=== PATIENT | male | born 1955 | race Caucasian/White ===

== ENCOUNTER 2022-08-28 14:37 | Observation (INO) | payer MEDICARE ==
[2022-08-28 15:08] LABS: CHLORIDE,CL 104 mEq/L (98-106); ESTIMATED GFR 59 mL/min (>=60); SODIUM,NA 140 mEq/L (136-145)
[2022-08-28] MEDS ORDERED: Acetaminophen 325 MG Tab PO PRN (16:07)
[2022-08-28] MEDS ORDERED: Ondansetron 4 MG Tab.DIS PO PRN (16:07)
[2022-08-28] MEDS: Iopamidol 755 Mg/ML 100 ML Bottle IVPUSH ONE (16:34)
[2022-08-28] MEDS: Ketorolac 30 MG/ML SDV IVPUSH ONE (17:12)
[2022-08-28] MEDS: metFORMIN 500 MG Tab PO SCH (17:50)
[2022-08-28] MEDS: Ondansetron 4 MG/2 ML SDV IVPUSH STA (18:24)
[2022-08-28] MEDS: Morphine 2 MG/ML SYRINGE IVPUSH ONE (18:25)
[2022-08-29] MEDS ORDERED: Losartan 100 MG Tab PO SCH (08:00)
[2022-08-29] MEDS ORDERED: atorvaSTATin 10 MG Tab PO SCH (08:00)
[2022-08-29] MEDS ORDERED: Cholecalciferol (Vitamin D3) 25 MCG Tab PO SCH (08:00)
== END 2022-08-28 18:35 ==
LOC: CC.MS 14:37 → CC.FCMC 14:37 → UNDOADMOB 15:49 → CC.MS 15:49
PROVIDERS: ADMIT Nurse Practitioner; ATTEND Nurse Practitioner
DX: R07.9 Chest pain, unspecified (principal); J90 Pleural effusion, not elsewhere classified; Z79.84 Long term (current) use of oral hypoglycemic drugs; Z79.82 Long term (current) use of aspirin; Z79.899 Other long term (current) drug therapy; Z20.822 Contact with and (suspected) exposure to COVID-19
CPT/HCPCS: 36415; 71046; 71270; 80053; 82550; 84484; 85025; 85379; 86140; 93005; 96374; 96375; G0378; J1885; J2270; J2405; Q9967; U0002

== ENCOUNTER 2023-12-30 12:44 | Observation (INO) | payer MEDICARE ==
[2023-12-30] MEDS ORDERED: Sodium Chloride 0.9% 10 ML Syringe FLUSH PRN (13:35)
[2023-12-30 13:44] LABS: BASOPHILS ABSOLUTE AUTO 0.02 10^3/uL (0.00-0.50); BASOPHILS PERCENT AUTO 0.6 % (0-1); EOSINOPHILS ABSOLUTE AUTO 0.03 10^3/uL (0.00-1.50); EOSINOPHILS PERCENT AUTO 0.9 % (0-6); HEMATOCRIT 36.8 % (42.0-52.0); HEMOGLOBIN 12.1 g/dL (14.0-18.0); LYMPHOCYTES PERCENT AUTO 36.8 % (24-44); MEAN CORPUSCULAR HEMOGLOBIN 30.9 pg (27.0-32.0); MEAN CORPUSCULAR HGB CONC 32.9 g/dL (32.0-36.0); MEAN CORPUSCULAR VOLUME 93.9 fL (83.0-97.0); MONOCYTES ABSOLUTE AUTO 0.29 10^3/uL (0.00-1.50); MONOCYTES PERCENT AUTO 8.9 % (0-10); NEUTROPHILS ABSOLUTE AUTO 1.72 x10^3/uL (1.80-8.00); NEUTROPHILS PERCENT AUTO 52.8 % (41-71); PLATELET COUNT,PLT 275 10^3/uL (150-400); RED BLOOD CELL COUNT 3.92 x10^6/uL (4.50-6.00); WHITE BLOOD CELL COUNT,WBC 3.3 10^3/uL (4.0-11.0)
[2023-12-30] MEDS: Sodium Chloride 0.9% 1,000 ML IV ONE (14:04)
[2023-12-30 14:11] LABS: APPEARANCE,URINE CLEAR (CLEAR); BILIRUBIN,URINE NEGATIVE (NEGATIVE); COLOR,URINE YELLOW (YELLOW); GLUCOSE,URINE NEGATIVE (NEGATIVE); KETONES,URINE NEGATIVE (NEGATIVE); LEUKOCYTE ESTERASE,URINE NEGATIVE (NEGATIVE); NITRITE,URINE NEGATIVE (NEGATIVE); OCCULT BLOOD,URINE NEGATIVE (NEGATIVE); PROTEIN,URINE NEGATIVE (NEGATIVE); UROBILINOGEN,URINE 0.2 EU/dL (0.2-1.0)
[2023-12-30 14:20] LABS: CORONAVIRUS COVID-19 NAA NEGATIVE (NEGATIVE); INFLUENZA A NAA NEGATIVE (NEGATIVE); INFLUENZA B NAA NEGATIVE (NEGATIVE); RESPIRATORY SYNCYTIAL VIR NAA NEGATIVE (NEGATIVE)
[2023-12-30 16:00] LABS: BILIRUBIN TOTAL 0.2 mg/dL (0.0-1.0); C-REACTIVE PROTEIN 2.83 mg/dL (<=0.50); CALCIUM 9.7 mg/dL (8.4-10.1); CREATININE 1.5 mg/dL (0.7-1.3); EST CRCL DRUG DOSING (CG) 48.51 mL/min; POTASSIUM,K 5.9 mEq/L (3.5-5.0); PROTEIN TOTAL,TP 7.4 g/dL (6.4-8.2)
[2023-12-30] MEDS: Ondansetron 4 MG/2 ML SDV IVPUSH STA (16:34)
[2023-12-30] MEDS ORDERED: Acetaminophen 325 MG Tab PO PRN (17:09)
[2023-12-30] MEDS ORDERED: Ondansetron 4 MG Tab.DIS PO PRN (17:09)
[2023-12-30] MEDS: Sodium Chloride 0.9% 1,000 ML IV SCH (17:44)
[2023-12-30] MEDS: Furosemide 20 MG/2 ML VIAL IVPUSH ONE (17:44)
[2023-12-30] MEDS: Mirtazapine 15 MG Tab PO SCH (20:06)
[2023-12-30] MEDS: metFORMIN 500 MG Tab PO SCH (20:07)
[2023-12-31 07:25] LABS: BASOPHILS ABSOLUTE AUTO 0.01 10^3/uL (0.00-0.50); BASOPHILS PERCENT AUTO 0.3 % (0-1); EOSINOPHILS ABSOLUTE AUTO 0.04 10^3/uL (0.00-1.50); EOSINOPHILS PERCENT AUTO 1.3 % (0-6); HEMATOCRIT 36.4 % (42.0-52.0); IMMATURE GRAN ABSOLUTE AUTO 0.01 10^3/uL (0.00-0.49); IMMATURE GRAN PERCENT AUTO 0.3 % (0.0-4.9); LYMPHOCYTES ABSOLUTE AUTO 1.59 10^3/uL (0.60-5.00); LYMPHOCYTES PERCENT AUTO 49.8 % (24-44); MEAN CORPUSCULAR HEMOGLOBIN 31.2 pg (27.0-32.0); MEAN CORPUSCULAR VOLUME 94.5 fL (83.0-97.0); MONOCYTES PERCENT AUTO 15.7 % (0-10); NEUTROPHILS ABSOLUTE AUTO 1.04 x10^3/uL (1.80-8.00); NEUTROPHILS PERCENT AUTO 32.6 % (41-71); PLATELET COUNT,PLT 252 10^3/uL (150-400); RED BLOOD CELL COUNT 3.85 x10^6/uL (4.50-6.00); WHITE BLOOD CELL COUNT,WBC 3.2 10^3/uL (4.0-11.0)
[2023-12-31] MEDS ORDERED: Dexamethasone 4 MG Tab PO SCH (08:00)
[2023-12-31] MEDS: Apixaban 5 MG Tab PO SCH ×2 (08:20→21:06)
[2023-12-31] MEDS: Cholecalciferol (Vitamin D3) 25 MCG Tab PO SCH (08:20)
[2023-12-31] MEDS: amLODIPine 10 MG Tab PO SCH (08:21)
[2023-12-31] MEDS: Aspirin 81 MG Tab.EC PO SCH (08:21)
[2023-12-31] MEDS: atorvaSTATin 10 MG Tab PO SCH (08:22)
[2023-12-31 10:34] LABS: BILIRUBIN TOTAL 0.2 mg/dL (0.0-1.0); CALCIUM 9.6 mg/dL (8.4-10.1); CREATININE 1.3 mg/dL (0.7-1.3); EST CRCL DRUG DOSING (CG) 52.65 mL/min; POTASSIUM,K 5.8 mEq/L (3.5-5.0); PROTEIN TOTAL,TP 7.2 g/dL (6.4-8.2)
[2023-12-31] MEDS: Furosemide 20 MG/2 ML VIAL IVPUSH ONE (12:49)
[2023-12-31 16:52] LABS: ALBUMIN 3.2 g/dL (3.4-5.0)
[2023-12-31] MEDS: Prochlorperazine 10 MG Tab PO PRN (17:12)
[2023-12-31] MEDS: metFORMIN 500 MG Tab PO SCH (17:12)
[2024-01-01] MEDS: amLODIPine 2.5 MG Tab PO SCH (07:38)
[2024-01-01 07:46] LABS: BASOPHILS ABSOLUTE AUTO 0.02 10^3/uL (0.00-0.50); BASOPHILS PERCENT AUTO 0.4 % (0-1); EOSINOPHILS ABSOLUTE AUTO 0.05 10^3/uL (0.00-1.50); EOSINOPHILS PERCENT AUTO 0.9 % (0-6); HEMATOCRIT 35.4 % (42.0-52.0); HEMOGLOBIN 11.8 g/dL (14.0-18.0); IMMATURE GRAN ABSOLUTE AUTO 0.02 10^3/uL (0.00-0.49); IMMATURE GRAN PERCENT AUTO 0.4 % (0.0-4.9); LYMPHOCYTES ABSOLUTE AUTO 1.93 10^3/uL (0.60-5.00); LYMPHOCYTES PERCENT AUTO 35.2 % (24-44); MEAN CORPUSCULAR HEMOGLOBIN 31.5 pg (27.0-32.0); MEAN CORPUSCULAR HGB CONC 33.3 g/dL (32.0-36.0); MEAN CORPUSCULAR VOLUME 94.4 fL (83.0-97.0); MONOCYTES ABSOLUTE AUTO 0.79 10^3/uL (0.00-1.50); MONOCYTES PERCENT AUTO 14.4 % (0-10); NEUTROPHILS ABSOLUTE AUTO 2.68 x10^3/uL (1.80-8.00); NEUTROPHILS PERCENT AUTO 48.7 % (41-71); PLATELET COUNT,PLT 235 10^3/uL (150-400); RED BLOOD CELL COUNT 3.75 x10^6/uL (4.50-6.00); WHITE BLOOD CELL COUNT,WBC 5.5 10^3/uL (4.0-11.0)
[2024-01-01 08:00] LABS: ALBUMIN 2.9 g/dL (3.4-5.0); BILIRUBIN TOTAL 0.2 mg/dL (0.0-1.0); CALCIUM 9.3 mg/dL (8.4-10.1); CREATININE 1.2 mg/dL (0.7-1.3); EST CRCL DRUG DOSING (CG) 56.59 mL/min; POTASSIUM,K 5.5 mEq/L (3.5-5.0); PROTEIN TOTAL,TP 6.8 g/dL (6.4-8.2)
== END 2024-01-01 11:30 | disposition home or self-care (01) ==
LOC: CC.ED 12:44 → UNDOADMOB 16:42 → CC.MS 16:42
PROVIDERS: ADMIT Nurse Practitioner Family; ATTEND Nurse Practitioner Family
DX: R53.83 Other fatigue (principal); E87.5 Hyperkalemia; E87.1 Hypo-osmolality and hyponatremia; R79.89 Other specified abnormal findings of blood chemistry; R06.02 Shortness of breath; E78.00 Pure hypercholesterolemia, unspecified; I10 Essential (primary) hypertension; E11.9 Type 2 diabetes mellitus without complications; R53.1 Weakness; Z79.82 Long term (current) use of aspirin; Z79.899 Other long term (current) drug therapy; Z79.84 Long term (current) use of oral hypoglycemic drugs; Z79.01 Long term (current) use of anticoagulants; Z85.831 Personal history of malignant neoplasm of soft tissue; Z20.822 Contact with and (suspected) exposure to COVID-19
CPT/HCPCS: 0241U; 36415; 71046; 80053; 81003; 82947; 84484; 85025; 86140; 93005; 93010; 96361; 96374; 96375; 96376; 99223; 99233; 99238; 99285-25; A9270-GY; G0378; J1940; J2405; J7030; Q0164